=== PATIENT | male | born 1945 | race Caucasian/White ===

== ENCOUNTER 2017-05-29 20:59 | Emergency (ER) | payer MEDICARE, OTHER ==
[~2017-05-29] VITALS: Ht 167.6 cm; Wt 80.9 kg
[2017-05-29 21:00] VITALS: BP 117/63
[2017-05-29] MEDS ORDERED: LISI-538 PO (21:14)
[2017-05-29] MEDS ORDERED: LOVA20TA2 PO (21:14)
[2017-05-29] MEDS ORDERED: SAW450CA2 PO (21:14)
[2017-05-29] MEDS ORDERED: BENA25CA4 PO (21:14)
[2017-05-29] MEDS ORDERED: METO1TAB32 PO (21:14)
[2017-05-29] MEDS ORDERED: VITA500T3 PO (21:14)
[2017-05-29] MEDS ORDERED: ASPI1TAB PO (21:14)
[2017-05-29] MEDS ORDERED: ZYLO300T4 PO (21:14)
[2017-05-29] MEDS ORDERED: MULT1TAB10 PO (21:14)
[2017-05-29] MEDS ORDERED: FOLI800C PO (21:14)
[2017-05-29] MEDS ORDERED: TYLE500T78 PO (21:14)
[2017-05-29] MEDS ORDERED: CLAR10CA3 PO (21:14)
[2017-05-29 21:59] LABS: WHITE BLOOD COUNT 5.3 K/mm3 (4.0-10.0)
[2017-05-29 22:00] LABS: BASO % 0.4 % (0.0-1.0); EOS # 0.3 K/mm3 (0.0-0.50); EOS % 4.9 % (0.0-3.0); LARGE UNSTAINED CELL # 0.1 K/mm3 (0.0-0.4); LARGE UNSTAINED CELL % 1.5 % (0.0-4.0); LYMPH # 1.8 K/mm3 (1.5-4.5); LYMPH % 32.4 % (24.0-44.0); MEAN CORPUSCULAR HEMOGLOBIN 32.8 pg (27.0-33.0); MEAN CORPUSCULAR HGB CONC 35.1 g/dl (32.0-36.5); MEAN CORPUSCULAR VOLUME 93.5 fl (80.0-96.0); MONO # 0.4 K/mm3 (0.0-0.8); MONO % 7.1 % (0.0-5.0); NEUTROPHILS # 2.8 K/mm3 (1.8-7.7); NEUTROPHILS % 53.7 % (36.0-66.0)
[2017-05-29 22:01] LABS: PLATELET COUNT, AUTOMATED 99 k/mm3 (150-450)
[2017-05-29 22:15] LABS: ERYTHROCYTE SEDIMENTATION RATE 2 mm/hr (0-20)
[2017-05-29 22:23] LABS: CREATININE FOR GFR 1.33 MG/DL (0.70-1.30); GLOMERULAR FILTRATION RATE 56.3 (>42); POTASSIUM SERUM 4.3 MEQ/L (3.5-5.1)
[2017-05-29] MEDS ORDERED: CEPHALEXIN 500 MG CAP PO ONE (22:30)
[2017-05-29] MEDS ORDERED: KEFL500C17 PO (22:30)
== END 2017-05-29 22:57 | disposition home or self-care (01) ==
LOC: M ED 20:59
DX: L03.113 Cellulitis of right upper limb (principal)